=== PATIENT | female | born 1945 | race Caucasian/White ===

== ENCOUNTER 2018-12-03 15:09 | Emergency (ER) | payer MEDICARE, OTHER ==
--- NOTE | 2018-12-03 15:58 | EDM.PDOC ---
ED HPI GENERAL MEDICAL PROBLEM - General Chief Complaint: Upper Extremity Injury/Pain Stated Complaint: TRIPED OVER IN THE KITCHEN AND HURT(R) ARM Time Seen by Provider: 12/03/18 15:54 Source of Information: Reports: Patient, Family, RN Notes Reviewed History Limitations: Reports: No Limitations - History of Present Illness INITIAL COMMENTS - FREE TEXT/NARRATIVE: 73-year-old female presents emergency department today following a fall at home , she tripped and landed on her right elbow she is now experiencing pain in that elbow is difficult for her to move there is no tenderness to fist no difficulty no tenderness in the shoulder Right Arm Pain Score (Numeric/FACES): 5 - Related Data Allergies Allergy/AdvReac Type Severity Reaction Status Date / Time codeine Allergy Headache Verified 12/03/18 15:46 Home Meds: Home Meds NK [No Known Home Meds] 12/03/18 [History] Past Medical History HEENT History: Reports: Impaired Vision [employer] History: Reports: - Infectious Disease History Infectious Disease History: Reports: Chicken Pox, Measles, Mumps - Past Surgical History Head Surgeries/Procedures: Reports: None HEENT Surgical History: Reports: Cataract Surgery Dermatological Surgical History: Reports: None Social & Family History - Tobacco Use Smoking Status *Q: Never Smoker Second Hand Smoke Exposure: No - Caffeine Use Caffeine Use: Reports: Coffee, Soda - Recreational Drug Use Recreational Drug Use: No Review of Systems - Review of Systems Review Of Systems: See Below Constitutional: Reports: No Symptoms Musculoskeletal: Reports: Joint Pain (Elbow pain) Skin: Reports: Wound Neurological: Reports: No Symptoms ED EXAM, GENERAL - Physical Exam Exam: See Below Free Text/Narrative:: examination of the elbow I do appreciate an abrasion lateral aspect of the elbow about the size of a $0.25 piece. She has tenderness to movement of the elbow as well as palpation there is no tenderness the wrist radial pulses +2 can move all digits without difficulty is no tenderness to the shoulder has full range of motion of the shoulder on the right side Exam Limited By: No Limitations General Appearance: Alert, WD/WN, No Apparent Distress Respiratory/Chest: No Respiratory Distress Course - Vital Signs Last Recorded V/S: Last Vital Signs Temp 97.9 F 12/03/18 15:47 Pulse 66 12/03/18 15:47 Resp 16 12/03/18 15:47 BP 185/71 H 12/03/18 15:47 Pulse Ox 96 12/03/18 15:47 - Orders/Labs/Meds Orders: Active Orders 24 hr Category Date Time Status DME for Discharge [COMM] Per Unit Routine Oth 12/03/18 16:41 Ordered Meds: Medications Discontinued Medications Generic Name Dose Route Start Last Admin Trade Name Jerry PRN Reason Stop Dose Admin Hydrocodone Bitart/Acetaminophen 1 tab 12/03/18 16:41 [place] 325-5 Mg PO 12/03/18 16:42 ONETIME ONE Departure - Departure Time of Disposition: 16:44 Disposition: Home, Self-Care 01 Condition: Fair Clinical Impression: Fracture of radial head, right, closed Qualifiers: Encounter type: initial encounter Fracture alignment: nondisplaced Qualified Code(s): S52.124A - Nondisplaced fracture of head of right radius, initial encounter for closed fracture - Discharge Information Referrals: PCP,None [Primary Care Provider] - Forms: ED Department Discharge Additional Instructions: Continue to use the sling for comfort, use ibuprofen for baseline pain control use hydrocodone for breakthrough pain, orthopedics will call you for an appointment time next week, call or return to the emergency department worsening of symptoms - My Orders Last 24 Hours: My Active Orders 12/03/18 16:41 DME for Discharge [COMM] Per Unit Routine - Assessment/Plan Last 24 Hours: My Active Orders 12/03/18 16:41 DME for Discharge [COMM] Per Unit Routine Plan: Assessment Acuity = acute Site and laterality = nondisplaced fracture radial head Etiology = secondary to fall] Manifestations = none Location of injury = Home Lab values = x-ray describes a fracture both Plan Placed in a sling follow-up with orthopedics this week hydrocodone 5/325 one tab by mouth 3 times a day when necessary total #10 provided for pain control This note was dictated using [employer] voice recognition software please call with any questions on syntax or grammar.
--- NOTE | 2018-12-03 16:26 | CRLCR ---
Fall pain 3 views of the right elbow. There is a nondisplaced radial head fracture without depression or displacement. There is presence of an elbow effusion. There is normal alignment. Soft tissue swelling. Dictated by Carole Mcpherson MD @ Dec 03 2018 4:23PM Signed by Dr. Carole Mcpherson @ Dec 03 2018 4:25PM
[2018-12-03] MEDS ORDERED: Acetaminophen/HYDROcodone 325-5 MG Tab PO ONE (16:41)
[2018-12-03] MEDS ORDERED: Bacitracin Oint 1 GM U/D Packet TOP ONE (16:43)
== END 2018-12-03 16:55 | disposition home or self-care (01) ==
LOC: JP.ED 15:09
DX: S52.124A Nondisplaced fracture of head of right radius, initial encounter for closed fracture (principal); W01.0XXA Fall on same level from slipping, tripping and stumbling without subsequent striking against object, initial encounter; Y92.000 Kitchen of unspecified non-institutional (private) residence as the place of occurrence of the external cause
CPT/HCPCS: 73080-RT; 99283; 99283-25

== ENCOUNTER 2021-08-18 06:17 | Day surgery (SDC) | payer MEDICARE, OTHER ==
[2021-08-18] MEDS ORDERED: Sodium Chloride 0.9% 1,000 ML IV SCH (07:00)
[2021-08-18] MEDS ORDERED: Propofol 200 MG/20 ML SDV ONE (07:14)
[2021-08-18] MEDS ORDERED: Midazolam 1 MG/ML 2 ML SDV ONE (07:15)
[2021-08-18] MEDS ORDERED: fentaNYL 100 MCG/2 ML SDV ONE (07:15)
== END 2021-08-18 09:19 | disposition home or self-care (01) ==
LOC: JP.SDS 06:17
PROVIDERS: ATTEND Surgery
DX: C18.0 Malignant neoplasm of cecum (principal); Z88.5 Allergy status to narcotic agent
CPT/HCPCS: J2250; J2704; J3010; J7030

== ENCOUNTER 2021-09-03 08:42 | Inpatient (IN) | payer MEDICARE, OTHER ==
[~2021-09-03 08:42] MED LIST: Bupivacaine 0.5% 50 ML MDV ONE; Dexamethasone 4 MG/ML SDV ONE; Glycopyrrolate 0.2 MG/ML 5 ML MDV ONE; Lidocaine 1% with EPINEPHrine 1:100,000 50 ML MDV ONE; Neostigmine Methylsulfate 1 MG/ML 5 ML Syringe ONE; Ondansetron 4 MG/2 ML SDV ONE; Propofol 200 MG/20 ML SDV ONE; Rocuronium 50 MG/5 ML Vial ONE; Succinylcholine 200 MG/10 ML MDV ONE; fentaNYL 250 MCG/5 ML SDV ONE
[2021-09-03] MEDS ORDERED: diphenhydrAMINE 50 MG/ML SDV ONE (09:29)
[2021-09-03] MEDS ORDERED: Sodium Chloride 0.9% 1,000 ML IV SCH (09:30)
[2021-09-03] MEDS ORDERED: fentaNYL 100 MCG/2 ML SDV ONE (09:57)
[2021-09-03] MEDS ORDERED: metroNIDAZOLE/Normal Saline 500 MG in Premix Bag 1 BAG IV ONE (10:00)
[2021-09-03] MEDS ORDERED: Ropivacaine 34 ML, dexAMETHasone 8 MG, EPINEPHrine 0.4 MG, Sodium Chloride 0.9% 43.6 ML NERVRT SCH ×4 (11:00)
[2021-09-03] MEDS ORDERED: Lactated Ringers 1,000 ML ONE (11:37)
[2021-09-03] MEDS ORDERED: Bupivacaine 0.5%/EPINEPHrine 1:200,000 50 ML MDV ONE (11:41)
[2021-09-03] MEDS ORDERED: Bupivacaine 0.5%/EPINEPHrine 1:200,000 50 ML MDV INJECT ONE ×2 (12:08→13:29)
[2021-09-03] MEDS ORDERED: fentaNYL 250 MCG/5 ML SDV ONE (12:38)
[2021-09-03] MEDS ORDERED: Ondansetron 4 MG/2 ML SDV IVPUSH PRN (13:38)
[2021-09-03] MEDS ORDERED: Pantoprazole 40 MG Vial IVPUSH SCH ×2 (13:45→16:00)
[2021-09-03] MEDS ORDERED: diphenhydrAMINE 25 MG Cap PO PRN (13:49)
[2021-09-03] MEDS ORDERED: fentaNYL 100 MCG/2 ML SDV IVPUSH PRN (13:49)
[2021-09-03] MEDS ORDERED: Bisacodyl 5 MG Tab PO SCH (14:00)
[2021-09-03] MEDS ORDERED: Gabapentin 300 MG Cap PO SCH (14:00)
[2021-09-03] MEDS ORDERED: Scopolamine 1.5 MG Transdermal Patch TOP ONE (14:15)
[2021-09-03] MEDS ORDERED: fentaNYL 100 MCG/2 ML SDV IVPUSH ONE (14:19)
[2021-09-03] MEDS ORDERED: hydrOXYzine HCL 100 MG/2 ML SDV IM ONE (14:20)
[2021-09-03] MEDS: Sodium Chloride 0.9% 1,000 ML IV SCH ×2 (15:19→23:16)
[2021-09-03] MEDS: Bisacodyl 5 MG Tab PO SCH (17:00)
[2021-09-03] MEDS: VERIFY SCOP PATCH TOP SCH (17:00)
[2021-09-03] MEDS: Gabapentin 300 MG Cap PO SCH (21:01)
[2021-09-03] MEDS: Acetaminophen/HYDROcodone 325-5 MG Tab PO PRN (21:01)
[2021-09-04] MEDS: Sodium Chloride 0.9% 1,000 ML IV SCH (06:50)
[2021-09-04] MEDS: Gabapentin 300 MG Cap PO SCH ×3 (08:56→20:48)
[2021-09-04] MEDS: Bisacodyl 5 MG Tab PO SCH (08:56)
[2021-09-04] MEDS: Enoxaparin 40 MG/0.4 ML Syringe SUBCUT SCH ×2 (08:57→20:48)
[2021-09-04] MEDS ORDERED: Celecoxib 200 MG Cap PO SCH (09:00)
[2021-09-04] MEDS: Celecoxib 200 MG Cap PO SCH (09:02)
[2021-09-04] MEDS: VERIFY SCOP PATCH TOP SCH (09:03)
[2021-09-04] MEDS ORDERED: Sodium Chloride 0.9% 10 ML Syringe FLUSH PRN (10:43)
[2021-09-04] MEDS: Acetaminophen/HYDROcodone 325-5 MG Tab PO PRN (13:21)
[2021-09-04] MEDS: Pantoprazole 40 MG Tab.CR PO SCH (16:53)
[2021-09-05] MEDS: Bisacodyl 5 MG Tab PO SCH (08:39)
[2021-09-05] MEDS: Celecoxib 200 MG Cap PO SCH (08:39)
[2021-09-05] MEDS: Gabapentin 300 MG Cap PO SCH ×3 (08:39→20:53)
[2021-09-05] MEDS: Enoxaparin 40 MG/0.4 ML Syringe SUBCUT SCH ×2 (08:40→20:52)
[2021-09-05] MEDS: VERIFY SCOP PATCH TOP SCH (08:41)
[2021-09-05] MEDS: Pantoprazole 40 MG Tab.CR PO SCH (17:11)
[2021-09-06] MEDS: Enoxaparin 40 MG/0.4 ML Syringe SUBCUT SCH (08:13)
[2021-09-06] MEDS: Gabapentin 300 MG Cap PO SCH (08:14)
[2021-09-06] MEDS: Celecoxib 200 MG Cap PO SCH (08:14)
[2021-09-06] MEDS: VERIFY SCOP PATCH TOP SCH (08:14)
== END 2021-09-06 10:48 | disposition home or self-care (01) | DRG 331 ==
LOC: UNDOADMIN 08:42 → JP.SDSSCHI 08:42 → JP.SDS 08:42 → JP.ICU 08:42 → EDSTATUS 13:00 → JP.ICU 13:39
PROVIDERS: ADMIT Surgery; ATTEND Surgery
PROC: 0DTF4ZZ Resection of Right Large Intestine, Percutaneous Endoscopic Approach (ICD-10-PCS; principal; 2021-09-04)
PROC: 0DNW4ZZ Release Peritoneum, Percutaneous Endoscopic Approach (ICD-10-PCS; 2021-09-04)
DX: C18.0 Malignant neoplasm of cecum (principal); E03.9 Hypothyroidism, unspecified; M81.0 Age-related osteoporosis without current pathological fracture; Z88.5 Allergy status to narcotic agent; Z86.16 Personal history of COVID-19
CPT/HCPCS: 36415; 80048; 83735; 84100; 85025; 86850; 86900; 86901; 86920; 86922; 88305; 88309; 88341; 88342; A9270-GY; C9113; J0171; J0330; J0690; J1100; J1200; J1650; J2405; J2704; J2710; J2795; J3010; J3410; J3490; J7030; J7120

== ENCOUNTER 2021-10-08 07:18 | Day surgery (SDC) | payer MEDICARE, OTHER ==
[2021-10-08] MEDS ORDERED: fentaNYL 100 MCG/2 ML SDV ONE (07:35)
[2021-10-08] MEDS ORDERED: Midazolam 1 MG/ML 2 ML SDV ONE (07:35)
[2021-10-08] MEDS ORDERED: Propofol 200 MG/20 ML SDV ONE (07:35)
[2021-10-08] MEDS ORDERED: Acetaminophen 500 MG Tab PO ONE (07:45)
[2021-10-08] MEDS ORDERED: Bupivacaine 0.5% 50 ML MDV ONE (07:48)
[2021-10-08] MEDS ORDERED: Lidocaine 1% with EPINEPHrine 1:100,000 50 ML MDV ONE (07:48)
[2021-10-08] MEDS ORDERED: Dextrose 5%-Lactated Ringers 1,000 ML IV SCH (08:00)
[2021-10-08] MEDS ORDERED: ceFAZolin 2 GM in Premix Bag 1 BAG IV ONE (08:45)
== END 2021-10-08 12:49 | disposition home or self-care (01) ==
LOC: JP.SDS 07:18
PROVIDERS: ATTEND Surgery
DX: C18.0 Malignant neoplasm of cecum (principal); Z90.49 Acquired absence of other specified parts of digestive tract; Z88.8 Allergy status to other drugs, medicaments and biological substances
CPT/HCPCS: A9270-GY; C1788; J0690; J1642; J2020; J2250; J2704; J3010; J3490; J7121

== ENCOUNTER 2022-09-24 06:16 | Day surgery (SDC) | payer MEDICARE, OTHER ==
[2022-09-24] MEDS ORDERED: Sodium Chloride 0.9% 1,000 ML IV SCH (07:00)
[2022-09-24] MEDS ORDERED: fentaNYL 100 MCG/2 ML SDV ONE (07:19)
[2022-09-24] MEDS ORDERED: Propofol 200 MG/20 ML SDV ONE (07:19)
== END 2022-09-24 09:25 | disposition home or self-care (01) ==
LOC: JP.SDS 06:16
PROVIDERS: ATTEND Surgery
DX: C18.9 Malignant neoplasm of colon, unspecified (principal); E03.9 Hypothyroidism, unspecified; Z90.49 Acquired absence of other specified parts of digestive tract; Z98.0 Intestinal bypass and anastomosis status
CPT/HCPCS: 45378; J1642; J2704; J3010; J7030

== ENCOUNTER 2023-03-08 11:25 | Emergency (ER) | payer MEDICARE, OTHER ==
[2023-03-08] MEDS ORDERED: Sodium Chloride 0.9% 10 ML Syringe FLUSH PRN ×2 (12:23→12:33)
[2023-03-08] MEDS ORDERED: Sodium Chloride 0.9% 1,000 ML IV STA (12:23)
[2023-03-08] MEDS ORDERED: fentaNYL 100 MCG/2 ML SDV IVPUSH ONE (12:25)
[2023-03-08] MEDS ORDERED: Sodium Chloride 0.9% 50 ML IV ONE (12:33)
[2023-03-08] MEDS ORDERED: Iopamidol 612 MG/ML 100 ML Bottle IV PRN (12:33)
[2023-03-08 13:04] LABS: BASOPHILS ABSOLUTE AUTO 0.05 K/uL (0.00-0.10); BASOPHILS PERCENT AUTO 0.6 % (0.1-1.3); EOSINOPHILS ABSOLUTE AUTO 0.19 K/uL (0.00-0.40); EOSINOPHILS PERCENT AUTO 2.3 % (0.0-5.4); HEMATOCRIT 39.6 % (34.3-46.0); IMMATURE GRAN ABSOLUTE AUTO 0.03 K/uL (0.00-0.23); IMMATURE GRAN PERCENT AUTO 0.4 % (0.0-0.7); LYMPHOCYTES ABSOLUTE AUTO 1.06 K/uL (0.8-3.3); LYMPHOCYTES PERCENT AUTO 12.6 % (11.4-47.7); MEAN CORPUSCULAR HEMOGLOBIN 31.9 pg (31.6-35.5); MEAN CORPUSCULAR HGB CONC 32.8 g/dL (31.6-35.5); MEAN CORPUSCULAR VOLUME 97.3 fL (81.4-99.0); MONOCYTES ABSOLUTE AUTO 0.81 K/uL (0.20-0.90); MONOCYTES PERCENT AUTO 9.6 % (3.3-12.6); NEUTROPHILS ABSOLUTE AUTO 6.27 K/uL (1.0-7.6); NEUTROPHILS PERCENT AUTO 74.5 % (40.0-78.1); PLATELET COUNT,PLT 203 K/uL (130-375); RED BLOOD CELL COUNT 4.07 M/uL (3.77-5.24); WHITE BLOOD CELL COUNT,WBC 8.4 K/uL (3.2-11.0)
[2023-03-08 13:20] LABS: APPEARANCE,URINE SLIGHTLY CLOUDY (CLEAR); BILIRUBIN,URINE SMALL (NEGATIVE); COLOR,URINE YELLOW (YELLOW); GLUCOSE,URINE NEGATIVE (NEGATIVE); KETONES,URINE 40 mg/dL (NEGATIVE); LEUKOCYTE ESTERASE,URINE TRACE (NEGATIVE); NITRITE,URINE NEGATIVE (NEGATIVE); OCCULT BLOOD,URINE MODERATE (NEGATIVE); PH,URINE 8.5 (5.0-8.0); PROTEIN,URINE 30 mg/dL (NEGATIVE); UROBILINOGEN,URINE 0.2 EU/dL (0.2-1.0)
[2023-03-08 13:26] LABS: A/G RATIO 0.9 (1.2-2.2); ALANINE AMINOTRANSFERASE,ALT 5 U/L (12-78); ALBUMIN 3.2 g/dL (3.4-5.0); ALKALINE PHOSPHATASE 97 U/L (46-116); ANION GAP 12.6 mmol/L (5.0-14.0); ASPARTATE AMNIOTRANSFERASE,AST 18 U/L (15-37); BILIRUBIN TOTAL 0.5 mg/dL (0.2-1.0); BLOOD UREA NITROGEN,BUN 18 mg/dL (7-18); CALCIUM 8.9 mg/dL (8.5-10.1); CARBON DIOXIDE,CO2 32 mmol/L (21-32); CHLORIDE,CL 99 mmol/L (100-108); CREATININE 0.8 mg/dL (0.6-1.0); EST CRCL DRUG DOSING (CG) 53.83 mL/min; ESTIMATED GFR 76 mL/min (>60); GLUCOSE RANDOM 76 mg/dL (74-106); POTASSIUM,K 3.6 mmol/L (3.6-5.2); PROTEIN TOTAL,TP 6.6 g/dL (6.4-8.2); SODIUM,NA 140 mmol/L (140-148)
[2023-03-08 13:28] LABS: AMORPHOUS SEDIMENT,URINE NOT SEEN; BACTERIA,URINE FEW; EPITHELIAL CELLS,URINE FEW; MUCUS,URINE FEW; RBC,URINE 30-40 (0-5)
== END 2023-03-08 15:44 | disposition home or self-care (01) ==
LOC: JP.ED 11:25
DX: N39.0 Urinary tract infection, site not specified (principal); E05.90 Thyrotoxicosis, unspecified without thyrotoxic crisis or storm; I10 Essential (primary) hypertension; Z88.5 Allergy status to narcotic agent; Z79.01 Long term (current) use of anticoagulants; Z79.899 Other long term (current) drug therapy
CPT/HCPCS: 36415; 74177; 80053; 81001; 83605; 83690; 85025; 87086; 96374; 99284; J3010; J3490; J7030; Q9967

== ENCOUNTER 2023-03-19 22:37 | Emergency (ER) | payer MEDICARE, OTHER ==
[2023-03-19 23:14] LABS: BASOPHILS ABSOLUTE AUTO 0.08 K/uL (0.00-0.10); BASOPHILS PERCENT AUTO 0.9 % (0.1-1.3); EOSINOPHILS ABSOLUTE AUTO 0.22 K/uL (0.00-0.40); EOSINOPHILS PERCENT AUTO 2.4 % (0.0-5.4); HEMATOCRIT 41.2 % (34.3-46.0); HEMOGLOBIN 13.7 g/dL (11.2-15.5); IMMATURE GRAN ABSOLUTE AUTO 0.03 K/uL (0.00-0.23); IMMATURE GRAN PERCENT AUTO 0.3 % (0.0-0.7); LYMPHOCYTES ABSOLUTE AUTO 1.19 K/uL (0.8-3.3); LYMPHOCYTES PERCENT AUTO 12.9 % (11.4-47.7); MEAN CORPUSCULAR HEMOGLOBIN 31.6 pg (31.6-35.5); MEAN CORPUSCULAR HGB CONC 33.3 g/dL (31.6-35.5); MEAN CORPUSCULAR VOLUME 94.9 fL (81.4-99.0); MONOCYTES ABSOLUTE AUTO 1.02 K/uL (0.20-0.90); NEUTROPHILS ABSOLUTE AUTO 6.72 K/uL (1.0-7.6); NEUTROPHILS PERCENT AUTO 72.5 % (40.0-78.1); PLATELET COUNT,PLT 268 K/uL (130-375); RED BLOOD CELL COUNT 4.34 M/uL (3.77-5.24); WHITE BLOOD CELL COUNT,WBC 9.3 K/uL (3.2-11.0)
[2023-03-19] MEDS ORDERED: Naloxone 0.4 MG/ML SDV IVPUSH PRN (23:19)
[2023-03-19] MEDS ORDERED: HYDROmorphone 0.5 MG/0.5 ML Syringe IVPUSH ONE (23:19)
[2023-03-19 23:23] LABS: A/G RATIO 0.9 (1.2-2.2); ALANINE AMINOTRANSFERASE,ALT 9 U/L (12-78); ALBUMIN 3.3 g/dL (3.4-5.0); ALKALINE PHOSPHATASE 109 U/L (46-116); ASPARTATE AMNIOTRANSFERASE,AST 27 U/L (15-37); BILIRUBIN TOTAL 0.4 mg/dL (0.2-1.0); BLOOD UREA NITROGEN,BUN 15 mg/dL (7-18); C-REACTIVE PROTEIN 0.72 mg/dL (0.0-0.3); CALCIUM 9.5 mg/dL (8.5-10.1); CARBON DIOXIDE,CO2 28 mmol/L (21-32); CHLORIDE,CL 98 mmol/L (100-108); EST CRCL DRUG DOSING (CG) 43.07 mL/min; ESTIMATED GFR 58 mL/min (>60); GLUCOSE RANDOM 101 mg/dL (74-106); POTASSIUM,K 4.4 mmol/L (3.6-5.2); SODIUM,NA 137 mmol/L (140-148)
[2023-03-19 23:27] LABS: ANION GAP 15.4 mmol/L (5.0-14.0)
[2023-03-20] MEDS ORDERED: Sodium Chloride 0.9% 50 ML IV ONE (00:31)
[2023-03-20] MEDS ORDERED: Sodium Chloride 0.9% 10 ML Syringe FLUSH PRN (00:31)
[2023-03-20] MEDS ORDERED: Iopamidol 612 MG/ML 100 ML Bottle IV PRN (00:31)
[2023-03-20 01:53] LABS: APPEARANCE,URINE CLOUDY (CLEAR); BILIRUBIN,URINE NEGATIVE (NEGATIVE); COLOR,URINE YELLOW (YELLOW); GLUCOSE,URINE NEGATIVE (NEGATIVE); KETONES,URINE 15 mg/dL (NEGATIVE); LEUKOCYTE ESTERASE,URINE TRACE (NEGATIVE); NITRITE,URINE NEGATIVE (NEGATIVE); OCCULT BLOOD,URINE TRACE-INTACT (NEGATIVE); PH,URINE 8.5 (5.0-8.0); PROTEIN,URINE NEGATIVE (NEGATIVE); UROBILINOGEN,URINE 0.2 EU/dL (0.2-1.0)
[2023-03-20 02:04] LABS: AMORPHOUS SEDIMENT,URINE MANY; BACTERIA,URINE MODERATE; EPITHELIAL CELLS,URINE FEW; MUCUS,URINE NOT SEEN; RBC,URINE 0-5 (0-5)
[2023-03-20] MEDS ORDERED: Ketorolac 30 MG/ML SDV IVPUSH ONE (02:18)
[2023-03-20] MEDS ORDERED: Alum Hydrox/Mag Hydrox/Simeth 15 ML, Lidocaine 2% 15 ML PO ONE ×2 (03:27)
[2023-03-20] MEDS ORDERED: Pantoprazole 40 MG Vial IVPUSH ONE (03:44)
== END 2023-03-20 05:45 | disposition home or self-care (01) ==
LOC: JP.ED 22:37
DX: R10.32 Left lower quadrant pain (principal); I10 Essential (primary) hypertension; Z79.899 Other long term (current) drug therapy; Z88.5 Allergy status to narcotic agent
CPT/HCPCS: 36415; 74177; 80053; 81001; 83605; 83690; 85025; 86140; 87086; 96374; 96375; 99284; A9270; C9113; J1170; J1885; J3490; Q9967

== ENCOUNTER 2023-03-20 15:25 | Emergency (ER) | payer MEDICARE, OTHER ==
[2023-03-20] MEDS ORDERED: fentaNYL 50 MCG/HR Transdermal Patch TRDERM SCH (16:30)
== END 2023-03-20 16:50 | disposition home or self-care (01) ==
LOC: JP.ED 15:25
DX: R10.33 Periumbilical pain (principal); R10.32 Left lower quadrant pain; I10 Essential (primary) hypertension; Z88.5 Allergy status to narcotic agent; Z79.01 Long term (current) use of anticoagulants; Z79.899 Other long term (current) drug therapy
CPT/HCPCS: 36415; 74177; 80053; 81001; 83605; 83690; 85025; 86140; 87086; 96374; 96375; 99283; 99284; A9270; C9113; J1170; J1885; J3490; Q9967

== ENCOUNTER 2023-03-23 12:28 | Emergency (ER) | payer MEDICARE, OTHER ==
[2023-03-23] MEDS ORDERED: Pantoprazole 40 MG Vial IVPUSH ONE (13:06)
[2023-03-23] MEDS ORDERED: Sodium Chloride 0.9% 500 ML IV ONE (13:06)
[2023-03-23] MEDS ORDERED: Sucralfate Suspension 1 GM/10 ML Cup PO ONE ×2 (13:07→14:00)
[2023-03-23] MEDS ORDERED: Sodium Chloride 0.9% 10 ML Syringe FLUSH PRN (13:07)
[2023-03-23 13:16] LABS: BASOPHILS ABSOLUTE AUTO 0.04 K/uL (0.00-0.10); BASOPHILS PERCENT AUTO 0.6 % (0.1-1.3); EOSINOPHILS ABSOLUTE AUTO 0.31 K/uL (0.00-0.40); HEMOGLOBIN 13.7 g/dL (11.2-15.5); IMMATURE GRAN PERCENT AUTO 0.3 % (0.0-0.7); LYMPHOCYTES ABSOLUTE AUTO 0.84 K/uL (0.8-3.3); LYMPHOCYTES PERCENT AUTO 13.5 % (11.4-47.7); MEAN CORPUSCULAR HGB CONC 33.4 g/dL (31.6-35.5); MEAN CORPUSCULAR VOLUME 95.8 fL (81.4-99.0); MONOCYTES ABSOLUTE AUTO 0.79 K/uL (0.20-0.90); MONOCYTES PERCENT AUTO 12.7 % (3.3-12.6); NEUTROPHILS ABSOLUTE AUTO 4.23 K/uL (1.0-7.6); NEUTROPHILS PERCENT AUTO 67.9 % (40.0-78.1); PLATELET COUNT,PLT 222 K/uL (130-375); RED BLOOD CELL COUNT 4.28 M/uL (3.77-5.24); WHITE BLOOD CELL COUNT,WBC 6.2 K/uL (3.2-11.0)
[2023-03-23 13:17] LABS: IMMATURE GRAN ABSOLUTE AUTO 0.02 K/uL (0.00-0.23)
[2023-03-23 13:45] LABS: CREATININE 0.9 mg/dL (0.6-1.0); EST CRCL DRUG DOSING (CG) 47.85 mL/min; POTASSIUM,K 4.3 mmol/L (3.6-5.2)
[2023-03-23 13:46] LABS: ANION GAP 16.3 mmol/L (5.0-14.0)
== END 2023-03-23 15:44 | disposition home or self-care (01) ==
LOC: JP.ED 12:28
DX: R10.32 Left lower quadrant pain (principal); I10 Essential (primary) hypertension; Z86.16 Personal history of COVID-19; Z88.5 Allergy status to narcotic agent; Z79.01 Long term (current) use of anticoagulants; Z79.899 Other long term (current) drug therapy
CPT/HCPCS: 36415; 74019; 80048; 83605; 83690; 85025; 86140; 96374; 99284; A9270; C9113; J3490; J7040

== ENCOUNTER 2023-03-25 14:31 | Inpatient (IN) | payer MEDICARE, OTHER ==
[2023-03-25] MEDS ORDERED: Sodium Chloride 0.9% 1,000 ML IV SCH ×2 (15:15→19:44)
[2023-03-25 15:24] LABS: BASOPHILS PERCENT AUTO 0.2 % (0.1-1.3); EOSINOPHILS PERCENT AUTO 0.1 % (0.0-5.4); HEMATOCRIT 35.1 % (34.3-46.0); HEMOGLOBIN 11.7 g/dL (11.2-15.5); IMMATURE GRAN ABSOLUTE AUTO 0.03 K/uL (0.00-0.23); IMMATURE GRAN PERCENT AUTO 0.3 % (0.0-0.7); LYMPHOCYTES ABSOLUTE AUTO 0.56 K/uL (0.8-3.3); LYMPHOCYTES PERCENT AUTO 6.2 % (11.4-47.7); MEAN CORPUSCULAR HEMOGLOBIN 31.6 pg (31.6-35.5); MEAN CORPUSCULAR HGB CONC 33.3 g/dL (31.6-35.5); MEAN CORPUSCULAR VOLUME 94.9 fL (81.4-99.0); MONOCYTES ABSOLUTE AUTO 0.73 K/uL (0.20-0.90); MONOCYTES PERCENT AUTO 8.1 % (3.3-12.6); NEUTROPHILS ABSOLUTE AUTO 7.71 K/uL (1.0-7.6); NEUTROPHILS PERCENT AUTO 85.1 % (40.0-78.1); PLATELET COUNT,PLT 212 K/uL (130-375); WHITE BLOOD CELL COUNT,WBC 9.1 K/uL (3.2-11.0)
[2023-03-25 15:27] LABS: BASOPHILS ABSOLUTE AUTO 0.02 K/uL (0.00-0.10); EOSINOPHILS ABSOLUTE AUTO 0.01 K/uL (0.00-0.40)
[2023-03-25 15:30] LABS: APPEARANCE,URINE TURBID (CLEAR); COLOR,URINE RED (YELLOW)
[2023-03-25 15:33] LABS: BACTERIA,URINE MODERATE; EPITHELIAL CELLS,URINE RARE; RBC,URINE PACKED (0-5); WBC,URINE PACKED (0-5)
[2023-03-25 15:34] LABS: AMORPHOUS SEDIMENT,URINE NOT SEEN; MUCUS,URINE NOT SEEN
[2023-03-25 15:45] LABS: A/G RATIO 0.9 (1.2-2.2); ALANINE AMINOTRANSFERASE,ALT 4 U/L (12-78); ALBUMIN 3.1 g/dL (3.4-5.0); ALKALINE PHOSPHATASE 80 U/L (46-116); ANION GAP 16.3 mmol/L (5.0-14.0); ASPARTATE AMNIOTRANSFERASE,AST 19 U/L (15-37); BILIRUBIN TOTAL 0.3 mg/dL (0.2-1.0); BLOOD UREA NITROGEN,BUN 19 mg/dL (7-18); CARBON DIOXIDE,CO2 23 mmol/L (21-32); CHLORIDE,CL 96 mmol/L (100-108); ESTIMATED GFR 58 mL/min (>60); GLUCOSE RANDOM 110 mg/dL (74-106); POTASSIUM,K 4.3 mmol/L (3.6-5.2); PROTEIN TOTAL,TP 6.4 g/dL (6.4-8.2); SODIUM,NA 131 mmol/L (140-148)
[2023-03-25] MEDS ORDERED: cefTRIAXone 1 GM in Sodium Chloride 0.9% 50 ML IV ONE (15:51)
[2023-03-25] MEDS ORDERED: Pantoprazole 40 MG Vial IVPUSH ONE (15:52)
[2023-03-25] MEDS ORDERED: Aluminum Hydroxide/Magnesium Hydroxide/Simethicone Susp 30 ML Cup PO ONE (16:42)
[2023-03-25] MEDS ORDERED: fentaNYL 50 MCG/ML SDV IVPUSH ONE (17:30)
[2023-03-25] MEDS ORDERED: Sodium Chloride 0.9% 50 ML IV SCH (17:45)
[2023-03-25] MEDS ORDERED: Iopamidol 612 MG/ML 100 ML Bottle IV SCH (17:45)
[2023-03-25] MEDS ORDERED: Ketorolac 30 MG/ML SDV IVPUSH ONE (19:12)
[2023-03-25] MEDS ORDERED: Albuterol 0.083% 2.5 MG/3 ML Neb Soln NEB PRN (19:44)
[2023-03-25] MEDS ORDERED: Ondansetron 4 MG Tab.DIS PO PRN (19:44)
[2023-03-25] MEDS ORDERED: Acetaminophen 325 MG Tab PO PRN (19:44)
[2023-03-25] MEDS ORDERED: fentaNYL 100 MCG/2 ML SDV IVPUSH PRN (19:44)
[2023-03-25] MEDS ORDERED: Naloxone 0.4 MG/ML SDV IVPUSH PRN (19:44)
[2023-03-25] MEDS ORDERED: HYDROmorphone 1 MG/ML Syringe IVPUSH PRN (19:44)
[2023-03-25] MEDS: HYDROmorphone 0.5 MG/0.5 ML Syringe IVPUSH PRN ×2 (19:56→23:07)
[2023-03-25] MEDS: Sucralfate 1 GM Tab PO SCH (20:07)
[2023-03-25] MEDS: Lactobacillus Rhamnosus GG (Probiotic) Cap PO SCH (20:07)
[2023-03-25] MEDS ORDERED: FLU (Fluad Quad) 2023-24(65UP)/MF59C/PF 60 MCG/0.5 ML Syringe IM ONE (21:45)
[2023-03-25] MEDS: Simethicone 125 MG Tab.Chew PO PRN (23:10)
[2023-03-26] MEDS: HYDROmorphone 0.5 MG/0.5 ML Syringe IVPUSH PRN ×7 (02:45→18:48)
[2023-03-26] MEDS: Pantoprazole 40 MG Vial IV SCH ×2 (04:01→16:21)
[2023-03-26 05:08] LABS: HEMATOCRIT 34.1 % (34.3-46.0); MEAN CORPUSCULAR HEMOGLOBIN 31.6 pg (31.6-35.5); MEAN CORPUSCULAR HGB CONC 32.3 g/dL (31.6-35.5); RED BLOOD CELL COUNT 3.48 M/uL (3.77-5.24); WHITE BLOOD CELL COUNT,WBC 10.1 K/uL (3.2-11.0)
[2023-03-26 05:21] LABS: INR 1.2; PTT,PARTIAL THROMBOPLSTIN TIME 26.5 sec (21.8-27.3)
[2023-03-26 05:22] LABS: A/G RATIO 0.9 (1.2-2.2); ALANINE AMINOTRANSFERASE,ALT 3 U/L (12-78); ALBUMIN 2.8 g/dL (3.4-5.0); ALKALINE PHOSPHATASE 70 U/L (46-116); ASPARTATE AMNIOTRANSFERASE,AST 20 U/L (15-37); BILIRUBIN TOTAL 0.4 mg/dL (0.2-1.0); BLOOD UREA NITROGEN,BUN 16 mg/dL (7-18); CALCIUM 7.1 mg/dL (8.5-10.1); CARBON DIOXIDE,CO2 21 mmol/L (21-32); CHLORIDE,CL 102 mmol/L (100-108); CREATININE 0.7 mg/dL (0.6-1.0); EST CRCL DRUG DOSING (CG) 61.52 mL/min; ESTIMATED GFR 90 mL/min (>60); GLUCOSE RANDOM 86 mg/dL (74-106); MAGNESIUM 2.3 mg/dL (1.8-2.4); POTASSIUM,K 4.6 mmol/L (3.6-5.2); PROTEIN TOTAL,TP 5.9 g/dL (6.4-8.2); SODIUM,NA 134 mmol/L (140-148)
[2023-03-26 05:30] LABS: ANION GAP 15.6 mmol/L (5.0-14.0)
[2023-03-26] MEDS: Simethicone 125 MG Tab.Chew PO PRN (07:36)
[2023-03-26] MEDS: Sucralfate 1 GM Tab PO SCH ×4 (07:56→20:04)
[2023-03-26] MEDS: Lactobacillus Rhamnosus GG (Probiotic) Cap PO SCH ×2 (09:22→20:05)
[2023-03-26] MEDS: Lisinopril 10 MG Tab PO SCH (09:23)
[2023-03-26] MEDS: Magnesium Hydroxide 400 MG/5 ML Susp 30 ML Cup PO PRN (09:32)
[2023-03-26] MEDS: Ondansetron 4 MG/2 ML SDV IV PRN (09:50)
[2023-03-26] MEDS ORDERED: Bisacodyl 10 MG Supp RECTAL PRN (09:50)
[2023-03-26] MEDS: Sodium Chloride 0.9% 1,000 ML IV SCH (14:50)
[2023-03-26] MEDS ORDERED: Naloxone 0.4 MG/ML SDV IVPUSH PRN ×2 (19:21→19:22)
[2023-03-26] MEDS ORDERED: Ondansetron 4 MG/2 ML SDV IVPUSH PRN (19:22)
[2023-03-26] MEDS ORDERED: diphenhydrAMINE 25 MG Cap PO PRN (19:22)
[2023-03-26] MEDS ORDERED: diphenhydrAMINE 50 MG/ML SDV IVPUSH PRN (19:22)
[2023-03-26] MEDS ORDERED: HYDROmorphone/Normal Saline 6 MG/30 ML PCA Vial IV PRN (19:22)
[2023-03-26] MEDS: Aluminum Hydroxide/Magnesium Hydroxide/Simethicone Susp 30 ML Cup PO PRN (22:54)
[2023-03-27] MEDS: Ondansetron 4 MG/2 ML SDV IV PRN (04:23)
[2023-03-27] MEDS: Pantoprazole 40 MG Vial IV SCH (04:23)
[2023-03-27 04:53] LABS: HEMATOCRIT 36.4 % (34.3-46.0); HEMOGLOBIN 11.9 g/dL (11.2-15.5); MEAN CORPUSCULAR HEMOGLOBIN 31.1 pg (31.6-35.5); MEAN CORPUSCULAR HGB CONC 32.7 g/dL (31.6-35.5); RED BLOOD CELL COUNT 3.83 M/uL (3.77-5.24); WHITE BLOOD CELL COUNT,WBC 10.7 K/uL (3.2-11.0)
[2023-03-27 05:15] LABS: C-REACTIVE PROTEIN 0.76 mg/dL (0.0-0.3); CALCIUM 7.7 mg/dL (8.5-10.1); CREATININE 0.6 mg/dL (0.6-1.0); EST CRCL DRUG DOSING (CG) 71.78 mL/min; POTASSIUM,K 3.6 mmol/L (3.6-5.2)
[2023-03-27 05:16] LABS: ANION GAP 13.6 mmol/L (5.0-14.0)
[2023-03-27] MEDS ORDERED: Propofol 200 MG/20 ML SDV ONE (07:40)
[2023-03-27] MEDS ORDERED: fentaNYL 50 MCG/ML SDV ONE (07:41)
[2023-03-27] MEDS: Sucralfate 1 GM Tab PO SCH ×5 (08:03→21:48)
[2023-03-27] MEDS: Sodium Chloride 0.9% 1,000 ML IV SCH (08:52)
[2023-03-27] MEDS: Aluminum Hydroxide/Magnesium Hydroxide/Simethicone Susp 30 ML Cup PO PRN (08:56)
[2023-03-27] MEDS ORDERED: FLU (Fluad Quad) 2023-24(65UP)/MF59C/PF 60 MCG/0.5 ML Syringe IM ONE (09:00)
[2023-03-27] MEDS: Lisinopril 10 MG Tab PO SCH (09:57)
[2023-03-27] MEDS: Lactobacillus Rhamnosus GG (Probiotic) Cap PO SCH ×2 (09:57→21:48)
[2023-03-27] MEDS: Non-Formulary Medication 1 Each (Methimazole [Methimazole] 5 MG Tablet) PO SCH (12:03)
[2023-03-27] MEDS: fentaNYL 50 MCG/HR Transdermal Patch TRDERM SCH (12:27)
[2023-03-27] MEDS: HYDROmorphone 2 MG Tab PO PRN ×2 (13:36→21:50)
[2023-03-27] MEDS: HYDROmorphone 0.5 MG/0.5 ML Syringe IVPUSH PRN (15:39)
[2023-03-27] MEDS: Pantoprazole 40 MG Tab.CR PO SCH (15:42)
[2023-03-27] MEDS: VERIFY FENTANYL PATCH SCH (21:08)
[2023-03-28] MEDS: HYDROmorphone 2 MG Tab PO PRN ×7 (00:44→22:27)
[2023-03-28] MEDS: Magnesium Hydroxide 400 MG/5 ML Susp 30 ML Cup PO PRN (05:07)
[2023-03-28] MEDS: Pantoprazole 40 MG Tab.CR PO SCH ×2 (07:28→16:15)
[2023-03-28] MEDS: Sucralfate 1 GM Tab PO SCH ×4 (07:28→19:27)
[2023-03-28] MEDS: Lactobacillus Rhamnosus GG (Probiotic) Cap PO SCH ×2 (08:13→20:37)
[2023-03-28] MEDS: Apixaban 5 MG Tab PO SCH ×2 (08:13→20:37)
[2023-03-28] MEDS: Lisinopril 10 MG Tab PO SCH (08:14)
[2023-03-28] MEDS: VERIFY FENTANYL PATCH SCH ×2 (08:14→20:38)
[2023-03-28] MEDS ORDERED: FLU (Fluad Quad) 2023-24(65UP)/MF59C/PF 60 MCG/0.5 ML Syringe IM ONE (10:00)
[2023-03-28] MEDS: Aluminum Hydroxide/Magnesium Hydroxide/Simethicone Susp 30 ML Cup PO PRN ×2 (13:38→18:29)
[2023-03-29] MEDS: HYDROmorphone 2 MG Tab PO PRN ×8 (01:42→23:41)
[2023-03-29] MEDS: Pantoprazole 40 MG Tab.CR PO SCH ×2 (07:37→17:12)
[2023-03-29] MEDS: Sucralfate 1 GM Tab PO SCH ×2 (07:37→11:40)
[2023-03-29] MEDS: Apixaban 5 MG Tab PO SCH ×2 (08:34→20:07)
[2023-03-29] MEDS: Lisinopril 10 MG Tab PO SCH (08:34)
[2023-03-29] MEDS: Lactobacillus Rhamnosus GG (Probiotic) Cap PO SCH ×2 (08:34→20:07)
[2023-03-29] MEDS: VERIFY FENTANYL PATCH SCH ×2 (08:34→20:32)
[2023-03-29] MEDS: Sucralfate Suspension 1 GM/10 ML Cup PO SCH ×2 (17:12→20:07)
[2023-03-30] MEDS: HYDROmorphone 2 MG Tab PO PRN ×2 (03:26→06:26)
[2023-03-30] MEDS: Sucralfate Suspension 1 GM/10 ML Cup PO SCH ×4 (07:06→19:47)
[2023-03-30] MEDS: Sennosides/Docusate Sodium 50-8.6 MG Tab PO PRN ×2 (07:06→23:37)
[2023-03-30] MEDS: HYDROmorphone 0.5 MG/0.5 ML Syringe IVPUSH PRN ×2 (07:06→11:35)
[2023-03-30] MEDS: Pantoprazole 40 MG Tab.CR PO SCH ×2 (07:06→15:39)
[2023-03-30] MEDS: Apixaban 5 MG Tab PO SCH ×3 (08:22→20:25)
[2023-03-30] MEDS: Lisinopril 10 MG Tab PO SCH (08:23)
[2023-03-30] MEDS: Lactobacillus Rhamnosus GG (Probiotic) Cap PO SCH ×3 (08:23→20:25)
[2023-03-30] MEDS: VERIFY FENTANYL PATCH SCH ×2 (08:24→20:41)
[2023-03-30] MEDS: fentaNYL 50 MCG/HR Transdermal Patch TRDERM SCH (11:29)
[2023-03-31] MEDS: Pantoprazole 40 MG Tab.CR PO SCH ×2 (07:08→16:11)
[2023-03-31] MEDS: Sucralfate Suspension 1 GM/10 ML Cup PO SCH ×4 (07:09→19:52)
[2023-03-31] MEDS: Magnesium Hydroxide 400 MG/5 ML Susp 30 ML Cup PO PRN (07:32)
[2023-03-31] MEDS: Sennosides/Docusate Sodium 50-8.6 MG Tab PO PRN ×2 (07:32→19:58)
[2023-03-31] MEDS: Lactobacillus Rhamnosus GG (Probiotic) Cap PO SCH ×2 (08:00→20:00)
[2023-03-31] MEDS: VERIFY FENTANYL PATCH SCH ×2 (08:00→20:01)
[2023-03-31] MEDS: Apixaban 5 MG Tab PO SCH ×2 (08:00→20:00)
[2023-03-31] MEDS: Lisinopril 10 MG Tab PO SCH (08:00)
[2023-03-31] MEDS: HYDROmorphone 2 MG Tab PO PRN ×5 (10:01→23:07)
[2023-03-31] MEDS ORDERED: Phenazopyridine 95 MG Tab PO ONE (18:28)
[2023-03-31] MEDS: Aluminum Hydroxide/Magnesium Hydroxide/Simethicone Susp 30 ML Cup PO PRN (19:58)
[2023-03-31] MEDS: HYDROmorphone 0.5 MG/0.5 ML Syringe IVPUSH PRN (23:12)
[2023-04-01] MEDS: HYDROmorphone 2 MG Tab PO PRN ×6 (02:47→22:32)
[2023-04-01] MEDS: Sennosides/Docusate Sodium 50-8.6 MG Tab PO PRN (08:40)
[2023-04-01] MEDS: Magnesium Hydroxide 400 MG/5 ML Susp 30 ML Cup PO PRN (08:40)
[2023-04-01] MEDS: Lactobacillus Rhamnosus GG (Probiotic) Cap PO SCH ×2 (08:41→20:01)
[2023-04-01] MEDS: Sucralfate Suspension 1 GM/10 ML Cup PO SCH ×4 (08:41→19:44)
[2023-04-01] MEDS: Lisinopril 10 MG Tab PO SCH (08:41)
[2023-04-01] MEDS: Apixaban 5 MG Tab PO SCH ×2 (08:41→20:01)
[2023-04-01] MEDS: Pantoprazole 40 MG Tab.CR PO SCH ×2 (08:41→16:38)
[2023-04-01] MEDS: VERIFY FENTANYL PATCH SCH ×2 (08:42→20:01)
[2023-04-01] MEDS ORDERED: fentaNYL 25 MCG/HR Transdermal Patch TRDERM SCH (10:45)
[2023-04-01] MEDS ORDERED: FENTANYL TRDERM SCH ×2 (12:00)
[2023-04-02] MEDS: HYDROmorphone 2 MG Tab PO PRN ×3 (04:12→11:49)
[2023-04-02] MEDS: Pantoprazole 40 MG Tab.CR PO SCH (08:27)
[2023-04-02] MEDS: Lactobacillus Rhamnosus GG (Probiotic) Cap PO SCH (08:27)
[2023-04-02] MEDS: Sucralfate Suspension 1 GM/10 ML Cup PO SCH ×3 (08:27→12:00)
[2023-04-02] MEDS: Apixaban 5 MG Tab PO SCH (08:27)
[2023-04-02] MEDS: VERIFY FENTANYL PATCH SCH (08:28)
[2023-04-02] MEDS: Lisinopril 10 MG Tab PO SCH (08:28)
== END 2023-04-02 12:35 | disposition home health service (06) | DRG 375 ==
LOC: JP.ED 14:31 → JP.MS 19:13
PROVIDERS: ADMIT Internal Medicine; ATTEND Hospitalist
PROC: 0DB68ZX Excision of Stomach, Via Natural or Artificial Opening Endoscopic, Diagnostic (ICD-10-PCS; 2023-03-27)
PROC: 0DB78ZX Excision of Stomach, Pylorus, Via Natural or Artificial Opening Endoscopic, Diagnostic (ICD-10-PCS; 2023-03-27)
PROC: 0DB98ZX Excision of Duodenum, Via Natural or Artificial Opening Endoscopic, Diagnostic (ICD-10-PCS; principal; 2023-03-27 08:00)
DX: C18.9 Malignant neoplasm of colon, unspecified (principal); C77.2 Secondary and unspecified malignant neoplasm of intra-abdominal lymph nodes; K29.80 Duodenitis without bleeding; D37.2 Neoplasm of uncertain behavior of small intestine; D13.2 Benign neoplasm of duodenum; I10 Essential (primary) hypertension; K59.09 Other constipation; M19.90 Unspecified osteoarthritis, unspecified site; K29.70 Gastritis, unspecified, without bleeding; R31.9 Hematuria, unspecified; E05.90 Thyrotoxicosis, unspecified without thyrotoxic crisis or storm; G89.3 Neoplasm related pain (acute) (chronic); K44.9 Diaphragmatic hernia without obstruction or gangrene; Z88.5 Allergy status to narcotic agent; Z79.899 Other long term (current) drug therapy; Z79.01 Long term (current) use of anticoagulants; Z79.2 Long term (current) use of antibiotics; Z87.01 Personal history of pneumonia (recurrent); Z87.81 Personal history of (healed) traumatic fracture; Z86.16 Personal history of COVID-19; Z98.49 Cataract extraction status, unspecified eye; Z11.52 Encounter for screening for COVID-19; Z98.890 Other specified postprocedural states; Z86.711 Personal history of pulmonary embolism; Z86.718 Personal history of other venous thrombosis and embolism
CPT/HCPCS: 36415; 74177; 80048; 80053; 81001; 83605; 83690; 83735; 85025; 85027; 85610; 85730; 86140; 87086; 88305; 88342; 90694; 93010; 96361; 96365; 96375; 97110-GP; 97161-GP; 97530-GP; 99222; 99232; 99238; 99285; 99285-25; A9270-GY; C9113; G0008; J0696; J0713; J1170; J1642; J1885; J2405; J2704; J3010; J3490; J7030; Q0162; Q9967; U0002